=== PATIENT | female | born 1990 | race Caucasian/White ===

== ENCOUNTER 2019-09-18 22:34 | Inpatient (IN) | payer BC ==
[2019-09-19] MEDS ORDERED: Lidocaine 1% 50 ML MDV INJECT PRN (00:44)
[2019-09-19] MEDS ORDERED: Carboprost Tromethamine 250 MCG/1 ML Amp IM PRN (00:44)
[2019-09-19] MEDS ORDERED: Misoprostol 200 MCG Tab PO PRN (00:44)
[2019-09-19] MEDS ORDERED: Sodium Chloride 0.9% 2.5 ML Syringe FLUSH PRN (00:44)
[2019-09-19] MEDS ORDERED: Methylergonovine 0.2 MG/1 ML Amp IM PRN ×2 (00:44→07:36)
[2019-09-19] MEDS ORDERED: Sodium Chloride 0.9% 10 ML Syringe FLUSH PRN (00:44)
[2019-09-19] MEDS ORDERED: Water For Irrigation,Sterile 1,000 ML Container IRR PRN (00:44)
[2019-09-19] MEDS ORDERED: Tranexamic Acid 1,000 MG in Sodium Chloride 0.9% 100 ML IV PRN ×2 (00:44→07:36)
[2019-09-19] MEDS ORDERED: Butorphanol 1 MG/ML SDV IVPUSH PRN (00:44)
[2019-09-19] MEDS ORDERED: Sodium Chloride 0.9% 10 ML SDV IV PRN (00:44)
[2019-09-19] MEDS ORDERED: Nalbuphine 10 MG/1 ML Vial IVPUSH PRN (00:44)
[2019-09-19] MEDS ORDERED: Oxytocin/0.9 % Sodium Chloride 30 UNIT/500 ML BAG IV SCH (00:45)
[2019-09-19] MEDS: Lactated Ringers 1,000 ML IV SCH ×3 (00:59→02:15)
[2019-09-19] MEDS ORDERED: Lidocaine 2% 5 ML SDV ONE (01:55)
[2019-09-19] MEDS ORDERED: Ropivacaine 0.2% 2 MG/ML 100 ML Infusion Bottle ONE (02:00)
[2019-09-19] MEDS ORDERED: fentaNYL 100 MCG/2 ML SDV ONE (02:09)
--- NOTE | 2019-09-19 02:20 | PCM.PREANE ---
Preanesthetic Assessment - Anesthesia/Transfusion/Family Hx Anesthesia History: Prior Anesthesia Without Reaction Family History of Anesthesia Reaction: No Transfusion History: No Prior Transfusion(s) - Physical Assessment NPO Status Date: 09/18/19 NPO Status Time: 18:00 Height: 1.7 m Weight: 90.718 kg ASA Class: 1 - Lab Values: Laboratory Last Values WBC 11.59 K/uL (4.0-11.0) H 09/19/19 00:53 RBC 3.76 M/uL (4.30-5.90) L 09/19/19 00:53 Hgb 10.7 g/dL (12.0-16.0) L 09/19/19 00:53 Hct 32.4 % (36.0-46.0) L 09/19/19 00:53 MCV 86.2 fL (80.0-98.0) 09/19/19 00:53 MCH 28.5 pg (27.0-32.0) 09/19/19 00:53 MCHC 33.0 g/dL (31.0-37.0) 09/19/19 00:53 RDW Std Deviation 41.0 fl (28.0-62.0) 05 00:53 RDW Coeff of Jose 14 % (11.0-15.0) 09/19/19 00:53 Plt Count 376 K/uL (150-400) 09/19/19 00:53 MPV 8.90 fL (7.40-12.00) 05 00:53 Blood Type O POSITIVE 09/19/19 00:53 Antibody Screen NEGATIVE 09/19/19 00:53 - Allergies Allergies/Adverse Reactions: Allergies Allergy/AdvReac Type Severity Reaction Status Date / Time No Known Allergies Allergy Verified 09/18/19 23:04 - Acknowledgements Anesthesia Type Planned: Epidural Pt an Appropriate Candidate for the Planned Anesthesia: Yes Alternatives and Risks of Anesthesia Discussed w Pt/Guardian: Yes Pt/Guardian Understands and Agrees with Anesthesia Plan: Yes PreAnesthesia Questionnaire HEENT History: Reports: Other (See Below) Other HEENT History: wisdom teeth 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: , Other (See Below) Other OB/BYN History: Clomid Psychiatric History: Reports: Anxiety - Infectious Disease History Infectious Disease History: Reports: Chicken Pox - Past Surgical History GI Surgical History: Reports: Hernia Repair/Other - SUBSTANCE USE Smoking Status *Q: Never Smoker Second Hand Smoke Exposure: No - HOME MEDS Home Medications: Home Meds Calcium Carbonate [Tums] 200 mg PO PRN 03/11/18 [History] No.116/Iron/Folic/Dha [Expecta Combo Pack] 03/11/18 [History] Nortriptyline HCl [Pamelor] 10 mg PO TID 09/18/19 [History] - CURRENT (IN HOUSE) MEDS Current Meds: Current Medications Butorphanol Tartrate (Stadol) 1 mg IVPUSH Q1H PRN PRN Reason: Pain Carboprost Tromethamine (Hemabate Ds) 250 mcg IM ASDIRECTED PRN PRN Reason: Post Hemorrhage Tranexamic Acid 1,000 mg/ (Sodium Chloride) 110 mls @ 660 mls/hr IV ONETIME PRN PRN Reason: Bleeding Lactated Ringer's (Ringers, Lactated) 1,000 mls @ 150 mls/hr IV ASDIRECTED [place] Last Admin: 09/19/19 02:15 Dose: 500 mls/hr Oxytocin/Sodium Chloride (Oxytocin 30 Unit/500 Ml-Ns) 30 unit in 500 mls @ 500 mls/hr IV TITRATE [facility] Lidocaine HCl (Xylocaine 1%) 50 ml INJECT ONETIME PRN PRN Reason: Laceration repair Methylergonovine Maleate (Methergine) 0.2 mg IM ASDIRECTED PRN PRN Reason: Post Hemorrhage Misoprostol (Cytotec) 200 mcg PO ONETIME PRN PRN Reason: Post Hemorrhage Nalbuphine HCl (Nubain) 10 mg IVPUSH Q1H PRN PRN Reason: Pain (severe 7-10) Sodium Chloride (Saline Flush) 10 ml FLUSH ASDIRECTED PRN PRN Reason: Keep Vein Open Sodium Chloride (Saline Flush) 2.5 ml FLUSH ASDIRECTED PRN PRN Reason: Keep Vein Open Sodium Chloride (Normal Saline) 10 ml IV ASDIRECTED PRN PRN Reason: IV Use Sterile Water (Sterile Water For Irrigation) 1,000 ml IRR ASDIRECTED PRN PRN Reason: delivery Discontinued Medications Fentanyl (Sublimaze) Confirm Administered Dose 100 mcg .ROUTE .STK-MED ONE Stop: 09/19/19 02:10 Lidocaine (Xylocaine-Mpf 2%) Confirm Administered Dose 15 ml .ROUTE .STK-MED ONE Stop: 09/19/19 01:56
--- NOTE | 2019-09-19 02:24 | PCM.PRNOTE ---
- Free Text/Narrative Note: Anes NOte Patietn requests epidural for L&D. Sitting position, level L3-L4 midline approach. Sterile technique. Chloraprep scrub to lumbar area. Sterile fenestrated drape applied. Epidural space easily achieved single attempt with ease using KB technique. KB at 3 cm. Cath threaded 5 cm with ease. Cath secured at 9 cm with sterile clear adhesive dressing. 0205 test 3 cc 1.5% lido with epi negative. 0208 Load 10 cc 2% lidocaine MPF in slow divided doses. 0214 Pump started wtih 100 cc 0.2% ropivicaine with 1 mcg cc fentanyl added. Rate is 8 cc hr with 6 cc q 20 mi prn bolus. Jonathan well. Time with patient [id number] Aj Bautista [employer]
[2019-09-19] MEDS ORDERED: Bisacodyl 10 MG Supp RECTAL PRN (07:36)
[2019-09-19] MEDS ORDERED: Witch Hazel Medicated Pads 40/Jar TOP PRN (07:36)
[2019-09-19] MEDS ORDERED: Ibuprofen 400 MG Tab PO PRN (07:36)
[2019-09-19] MEDS ORDERED: Benzocaine/Menthol 20%-0.5% Spray 78 GM Cannister TOP PRN (07:36)
[2019-09-19] MEDS ORDERED: Lanolin 100% Cream 7 GM Tube TOP PRN (07:36)
[2019-09-19] MEDS ORDERED: Acetaminophen 500 MG Tab PO PRN ×2 (07:36)
[2019-09-19] MEDS ORDERED: Nortriptyline 10 MG Cap PO SCH ×2 (07:39→21:00)
--- NOTE | 2019-09-19 07:42 | PCM.DEL ---
L & D Note - General Info Date of Service: 09/19/19 Mother's Due Date: 09/22/19 - Delivery Note Labor: Spontaneous Delivery Outcome: Livebirth Presentation: Right Occiput Anterior (WILMER) (rotated manually for ROP) Nuchal Cord: Present, Reduced Prep: Other Anesthesia Type: Epidural Laceration: 1st Degree Suture type: Vicryl Placenta: Intact, Spontaneous Cord: 3 Vessels Estimated Blood Loss: 200 Resuscitation Needed: No Murphy: Suctioned Score 1 min: 8 Score 5 min: 9 Delivery Comments (Free Text/Narrative):: Liveborn male 3520 grams - General Info Date of Service: 09/19/19 - Patient Data Weight - Most Recent: 90.718 kg I&O - Last 24 Hours: Intake & Output 09/18/19 09/19/19 09/19/19 22:59 06:59 14:59 Intake Total 2000 500 Balance 2000 500 Lab Results Last 24 Hours: Laboratory Results - last 24 hr 09/19/19 09/19/19 Range/Units 00:53 00:53 WBC 11.59 H (4.0-11.0) K/uL RBC 3.76 L (4.30-5.90) M/uL Hgb 10.7 L (12.0-16.0) g/dL Hct 32.4 L (36.0-46.0) % MCV 86.2 (80.0-98.0) fL MCH 28.5 (27.0-32.0) pg MCHC 33.0 (31.0-37.0) g/dL RDW Std Deviation 41.0 (28.0-62.0) fl RDW Coeff of Jose 14 (11.0-15.0) % Plt Count 376 (150-400) K/uL MPV 8.90 (7.40-12.00) fL Blood Type O POSITIVE Antibody Screen NEGATIVE Med Orders - Current: Current Medications Acetaminophen (Tylenol Extra Strength) 500 mg PO Q4H PRN PRN Reason: Pain Acetaminophen (Tylenol Extra Strength) 1,000 mg PO Q4H PRN PRN Reason: Pain Benzocaine/Menthol (Dermoplast Pain Relief 20%-0.5% [place]) 78 gm TOP ASDIRECTED PRN PRN Reason: Perineal Comfort Measure Bisacodyl (Dulcolax) 10 mg RECTAL ONETIME PRN PRN Reason: Constipation Docusate Sodium (Colace) 100 mg PO BID PRN PRN Reason: Constipation Emollient Ointment (Lansinoh Hpa) 0 gm TOP ASDIRECTED PRN PRN Reason: Sore Nipples Tranexamic Acid 1,000 mg/ (Sodium Chloride) 110 mls @ 660 mls/hr IV ONETIME PRN PRN Reason: Bleeding Ibuprofen (Motrin) 400 mg PO Q4H PRN PRN Reason: Pain Ibuprofen (Motrin) 800 mg PO Q6H PRN PRN Reason: Pain Methylergonovine Maleate (Methergine) 0.2 mg IM ONETIME PRN PRN Reason: Excessive Vaginal Bleeding Nortriptyline HCl (Nortriptyline) 30 mg PO BEDTIME [facility] Js Lamar (Tucks) 1 pad TOP ASDIRECTED PRN PRN Reason: comfort care Discontinued Medications Butorphanol Tartrate (Stadol) 1 mg IVPUSH Q1H PRN PRN Reason: Pain Carboprost Tromethamine (Hemabate Ds) 250 mcg IM ASDIRECTED PRN PRN Reason: Post Hemorrhage Fentanyl (Sublimaze) Confirm Administered Dose 100 mcg .ROUTE .STK-MED ONE Stop: 09/19/19 02:10 Tranexamic Acid 1,000 mg/ (Sodium Chloride) 110 mls @ 660 mls/hr IV ONETIME PRN PRN Reason: Bleeding Lactated Ringer's (Ringers, Lactated) 1,000 mls @ 150 mls/hr IV ASDIRECTED [facility] Last Admin: 09/19/19 02:15 Dose: 500 mls/hr Oxytocin/Sodium Chloride (Oxytocin 30 Unit/500 Ml-Ns) 30 unit in 500 mls @ 500 mls/hr IV TITRATE [facility] Last Admin: 09/19/19 07:14 Dose: 500 mls/hr Lidocaine (Xylocaine-Mpf 2%) Confirm Administered Dose 15 ml .ROUTE .STK-MED ONE Stop: 09/19/19 01:56 Lidocaine HCl (Xylocaine 1%) 50 ml INJECT ONETIME PRN PRN Reason: Laceration repair Methylergonovine Maleate (Methergine) 0.2 mg IM ASDIRECTED PRN PRN Reason: Post Hemorrhage Misoprostol (Cytotec) 200 mcg PO ONETIME PRN PRN Reason: Post Hemorrhage Nalbuphine HCl (Nubain) 10 mg IVPUSH Q1H PRN PRN Reason: Pain (severe 7-10) Sodium Chloride (Saline Flush) 10 ml FLUSH ASDIRECTED PRN PRN Reason: Keep Vein Open Sodium Chloride (Saline Flush) 2.5 ml FLUSH ASDIRECTED PRN PRN Reason: Keep Vein Open Sodium Chloride (Normal Saline) 10 ml IV ASDIRECTED PRN PRN Reason: IV Use Sterile Water (Sterile Water For Irrigation) 1,000 ml IRR ASDIRECTED PRN PRN Reason: delivery Last Admin: 09/19/19 07:08 Dose: 1,000 ml - Problem List & Annotations (1) Vaginal delivery SNOMED Code(s): 208466855 Code(s): O80 - ENCOUNTER FOR FULL-TERM UNCOMPLICATED DELIVERY Status: Acute Current Visit: No - Problem List Review Problem List Initiated/Reviewed/Updated: Yes - My Orders Last 24 Hours: My Active Orders 09/18/19 23:07 Non Stress Test [RC] PER UNIT ROUTINE Up ad Jud [RC] ASDIRECTED Vaginal Exam [RC] Click to Edit Vital Signs [RC] PER UNIT ROUTINE 09/19/19 00:44 Heart Tones [RC] CONTINUOUS Non Stress Test [RC] PER UNIT ROUTINE May Shower [RC] ASDIRECTED Notify Provider [RC] PRN Up ad Jud [RC] ASDIRECTED Vaginal Exam [RC] PRN Vital Signs [RC] PER UNIT ROUTINE 09/19/19 00:53 RPR (SYPHILIS SERO) W/ RFLX [REF] Routine 09/19/19 07:20 BLOOD GAS ARTERIAL UMBILICAL [BG] Urgent BLOOD GAS VENOUS UMBILICAL [BG] Urgent 09/19/19 07:36 Patient Status [ADT] Routine May Shower [RC] ASDIRECTED Up ad Jud [RC] ASDIRECTED Vital Signs [RC] PER UNIT ROUTINE Acetaminophen [Tylenol Extra Strength] 1,000 mg PO Q4H PRN Acetaminophen [Tylenol Extra Strength] 500 mg PO Q4H PRN Benzocaine/Menthol [Dermoplast Pain Relief 20%-0.5% [place]] 78 gm TOP ASDIRECTED PRN Docusate Sodium [Colace] 100 mg PO BID PRN Ibuprofen [Motrin] 400 mg PO Q4H PRN Ibuprofen [Motrin] 800 mg PO Q6H PRN Lanolin [Lansinoh HPA] See Dose Instructions TOP ASDIRECTED PRN Methylergonovine [Methergine] 0.2 mg IM ONETIME PRN Tranexamic Acid [Cyklokapron] 1,000 mg Sodium Chloride 0.9% [Normal Saline] 100 ml IV ONETIME bisacodyL [Dulcolax] 10 mg RECTAL ONETIME PRN witch Jeferson [Tucks] 1 pad TOP ASDIRECTED PRN Assess Lochia [WOMSER] Per Unit Routine Assess Uterine Involution [WOMSER] Per Unit Routine Peripheral IV Discontinue [OM.PC] Routine Resuscitation Status Routine 09/19/19 07:37 Perineal Care [OM.PC] Per Unit Routine 09/19/19 07:39 Nortriptyline 30 mg PO BEDTIME 09/20/19 05:11 HEMOGLOBIN/HEMATOCRIT,HH [HEME] Timed
[2019-09-19] MEDS ORDERED: Nortriptyline 10 MG Cap PO ONE (07:55)
[2019-09-19] MEDS: Ibuprofen 800 MG Tab PO PRN ×2 (11:07→21:24)
[2019-09-19] MEDS: Docusate Sodium 100 MG Cap PO PRN ×2 (11:07→23:25)
--- NOTE | 2019-09-19 16:22 | OR ---
SURGEON: Cindy Kelly M.D. DATE OF PROCEDURE: 09/19/2019 PREOPERATIVE DIAGNOSES: 39-4/7 week intrauterine , active spontaneous labor. POSTOPERATIVE DIAGNOSES: 39-4/7 week intrauterine , active spontaneous labor. PROCEDURE: Term spontaneous vaginal delivery, repair of first-degree laceration. PRIMARY SURGEON: Cindy Kelly M.D. ANESTHESIA: Epidural. ESTIMATED BLOOD LOSS: Less than 300 mL. FINDINGS: Liveborn male. score of 8 and 9. Weight of 3520 g. Placenta spontaneous, Cisneros intact, with 3 vessels. Small first-degree perineal laceration repaired. COMPLICATIONS: None known. DISPOSITION: Mother and baby in LDR in good condition. BRIEF HISTORY: This is a 29-year-old female, G2, P1. She presents at 39-4/7 weeks' gestation in active spontaneous labor. She had category 1 heart tones. She was admitted for labor management. She was known to be group B strep negative. When she was 5 cm dilated, she received an epidural for pain control. She continued to progress spontaneously, although she felt slower than she would anticipate when she was 9 cm dilated. Artificial rupture of membranes was performed and clear fluid was noted. Shortly thereafter, she began to feel pressure. Anterior lip was reducible. She began to push. She was noted to be in the right occiput posterior position and with pushing, was rotated manually to the right occiput anterior position. DESCRIPTION OF PROCEDURE: With the patient in dorsal lithotomy position, the patient pushed over 4 contractions to a 5+ station, at which time the head was delivered spontaneously and atraumatically over the perineum with support with subsequent delivery of the infant's shoulders and body without any difficulty. The was bulb suctioned by nose and mouth and after the cord had ceased to pulsate, it was doubly clamped and cut. The infant was handed to the mother in the presence of the nurse attending delivery. The was a liveborn male, score of 8 and 9, weighing 3520 g. Cord blood was collected for cord ABGs as well as routine cord blood sampling. Pitocin was initiated after delivery of the to assist with delivery of the placenta which was delivered spontaneously, Cisneros intact with 3 vessels. Upon inspection of the pelvis and perineum, there were no periurethral, vaginal sidewall, cervical, or rectal lacerations. There was a small first-degree abrasion at 7 o'clock of the perineum and a single [id number] suture was placed for hemostasis. Final sponge, needle, and instrument counts were correct. There were no complications. Mother and baby remained in LDR in good condition. ANNALISA RIVAS /[id number]
--- NOTE | 2019-09-19 23:43 | PCM48HPAN ---
Post Anesthesia Note - EVALUATION WITHIN 48HRS OF ANESTHETIC Vital Signs in Normal Range: Yes Patient Participated in Evaluation: Yes Respiratory Function Stable: Yes Airway Patent: Yes Cardiovascular Function Stable: Yes Hydration Status Stable: Yes Pain Control Satisfactory: Yes Nausea and Vomiting Control Satisfactory: Yes Mental Status Recovered: Yes Vital Signs: Last Vital Signs Temp 36.7 C 09/19/19 20:09 Pulse 83 09/19/19 20:09 Resp 17 09/19/19 20:09 BP 127/78 09/19/19 20:09 Pulse Ox 97 09/19/19 20:09
--- NOTE | 2019-09-20 08:20 | PCM.PNPP ---
- General Info Date of Service: 09/20/19 Functional Status: Reports: Pain Controlled, Tolerating Diet, Ambulating, Urinating - Review of Systems General: Reports: No Symptoms HEENT: Reports: No Symptoms Pulmonary: Reports: No Symptoms Cardiovascular: Reports: No Symptoms Gastrointestinal: Reports: No Symptoms Genitourinary: Reports: No Symptoms Musculoskeletal: Reports: No Symptoms Skin: Reports: No Symptoms Neurological: Reports: No Symptoms Psychiatric: Reports: No Symptoms - Patient Data Vital Signs - Most Recent: Last Vital Signs Temp 37.6 C 09/20/19 04:45 Pulse 94 09/20/19 04:45 Resp 17 09/20/19 04:45 BP 108/57 L 09/20/19 04:45 Pulse Ox 97 09/20/19 04:45 Weight - Most Recent: 90.718 kg Lab Results - Last 24 Hours: Laboratory Results - last 24 hr 09/20/19 Range/Units 06:20 Hgb 9.0 L (12.0-16.0) g/dL Hct 28.4 L (36.0-46.0) % Med Orders - Current: Current Medications Acetaminophen (Tylenol Extra Strength) 500 mg PO Q4H PRN PRN Reason: Pain Acetaminophen (Tylenol Extra Strength) 1,000 mg PO Q4H PRN PRN Reason: Pain Benzocaine/Menthol (Dermoplast Pain Relief 20%-0.5% [place]) 78 gm TOP ASDIRECTED PRN PRN Reason: Perineal Comfort Measure Last Admin: 09/19/19 08:51 Dose: 1 spray Bisacodyl (Dulcolax) 10 mg RECTAL ONETIME PRN PRN Reason: Constipation Docusate Sodium (Colace) 100 mg PO BID PRN PRN Reason: Constipation Last Admin: 09/19/19 23:25 Dose: 100 mg Emollient Ointment (Lansinoh Hpa) 0 gm TOP ASDIRECTED PRN PRN Reason: Sore Nipples Last Admin: 09/19/19 19:53 Dose: 7 gm Tranexamic Acid 1,000 mg/ (Sodium Chloride) 110 mls @ 660 mls/hr IV ONETIME PRN PRN Reason: Bleeding Ibuprofen (Motrin) 400 mg PO Q4H PRN PRN Reason: Pain Ibuprofen (Motrin) 800 mg PO Q6H PRN PRN Reason: Pain Last Admin: 09/19/19 21:24 Dose: 800 mg Methylergonovine Maleate (Methergine) 0.2 mg IM ONETIME PRN PRN Reason: Excessive Vaginal Bleeding Nortriptyline HCl (Nortriptyline) 30 mg PO BEDTIME [facility] Last Admin: 09/19/19 21:23 Dose: 30 mg Witch Brianda (Tucks) 1 pad TOP ASDIRECTED PRN PRN Reason: comfort care Last Admin: 09/19/19 08:51 Dose: 1 pack Discontinued Medications Butorphanol Tartrate (Stadol) 1 mg IVPUSH Q1H PRN PRN Reason: Pain Carboprost Tromethamine (Hemabate Ds) 250 mcg IM ASDIRECTED PRN PRN Reason: Post Hemorrhage Fentanyl (Sublimaze) Confirm Administered Dose 100 mcg .ROUTE .STK-MED ONE Stop: 09/19/19 02:10 Last Admin: 09/19/19 11:21 Dose: Not Given Tranexamic Acid 1,000 mg/ (Sodium Chloride) 110 mls @ 660 mls/hr IV ONETIME PRN PRN Reason: Bleeding Lactated Ringer's (Ringers, Lactated) 1,000 mls @ 150 mls/hr IV ASDIRECTED [facility] Last Admin: 09/19/19 02:15 Dose: 500 mls/hr Oxytocin/Sodium Chloride (Oxytocin 30 Unit/500 Ml-Ns) 30 unit in 500 mls @ 500 mls/hr IV TITRATE [facility] Last Admin: 09/19/19 07:14 Dose: 500 mls/hr Lidocaine (Xylocaine-Mpf 2%) Confirm Administered Dose 15 ml .ROUTE .STK-MED ONE Stop: 09/19/19 01:56 Lidocaine HCl (Xylocaine 1%) 50 ml INJECT ONETIME PRN PRN Reason: Laceration repair Methylergonovine Maleate (Methergine) 0.2 mg IM ASDIRECTED PRN PRN Reason: Post Hemorrhage Misoprostol (Cytotec) 200 mcg PO ONETIME PRN PRN Reason: Post Hemorrhage Nalbuphine HCl (Nubain) 10 mg IVPUSH Q1H PRN PRN Reason: Pain (severe 7-10) Nortriptyline HCl (Nortriptyline) 30 mg PO ONETIME ONE Stop: 09/19/19 07:56 Last Admin: 09/19/19 10:04 Dose: Not Given Ropivacaine (Naropin 0.2%) 200 mg .ROUTE .[employer]ellyCloud-Green Momit ONE Stop: 09/19/19 02:01 Sodium Chloride (Saline Flush) 10 ml FLUSH ASDIRECTED PRN PRN Reason: Keep Vein Open Sodium Chloride (Saline Flush) 2.5 ml FLUSH ASDIRECTED PRN PRN Reason: Keep Vein Open Sodium Chloride (Normal Saline) 10 ml IV ASDIRECTED PRN PRN Reason: IV Use Sterile Water (Sterile Water For Irrigation) 1,000 ml IRR ASDIRECTED PRN PRN Reason: delivery Last Admin: 09/19/19 07:08 Dose: 1,000 ml - Infant Interaction Disposition, : [place] in Room with Family Infant Interaction: Holding Infant Feeding: Breastfed Infant; Nursed Well Support Person: - Recovery Exam Fundal Tone: Firm Fundal Level: 3 Fingerbreadths Below Umbilicus Fundal Placement: Midline Lochia Amount: Small Lochia Color: Rubra/Red Other Perinuem Description: First degree tear, repaired Bladder Status: Voiding Urinary Elimination: Voided - Exam General: Alert, Oriented Neck: Supple Lungs: Normal Respiratory Effort GI/Abdominal Exam: Soft, Non-Tender Extremities: Non-Tender Skin: Warm, Dry, Intact Neurological: No New Focal Deficit Psy/Mental Status: Alert, Normal Affect, Normal Mood - Problem List & Annotations (1) Vaginal delivery SNOMED Code(s): 018481990 Code(s): O80 - ENCOUNTER FOR FULL-TERM UNCOMPLICATED DELIVERY Status: Acute Current Visit: No - Problem List Review Problem List Initiated/Reviewed/Updated: Yes - My Orders Last 24 Hours: My Active Orders 09/20/19 08:19 Ready for Discharge [RC] PER UNIT ROUTINE - Assessment Assessment:: 29yo P2 s/p , PPD#1 - Plan Plan:: Patient desires discharge home today; reviewed discharge instructions.
== END 2019-09-20 11:35 | disposition home or self-care (01) | DRG 560 ==
LOC: MW.OBCHECK 22:34 → MW.OB 22:34 → MW.OBCHECK 09-19 00:44 → MW.OB 09-19 00:44 → OBSVTOIN 09-19 07:14 → MW.OB 09-19 09:38
PROVIDERS: ADMIT Obstetrics & Gynecology; ATTEND Obstetrics & Gynecology
PROC: 10E0XZZ Delivery of Products of Conception, External Approach (ICD-10-PCS; principal; 2019-09-19)
PROC: 0HQ9XZZ Repair Perineum Skin, External Approach (ICD-10-PCS; 2019-09-19)
PROC: 10907ZC Drainage of Amniotic Fluid, Therapeutic from Products of Conception, Via Natural or Artificial Opening (ICD-10-PCS; 2019-09-19)
PROC: 3E0R3BZ Introduction of Anesthetic Agent into Spinal Canal, Percutaneous Approach (ICD-10-PCS; 2019-09-19)
PROC: 00HU33Z Insertion of Infusion Device into Spinal Canal, Percutaneous Approach (ICD-10-PCS; 2019-09-19)
DX: O69.81X0 Labor and delivery complicated by cord around neck, without compression, not applicable or unspecified (principal); Z3A.39 39 weeks gestation of pregnancy; Z37.0 Single live birth; O70.0 First degree perineal laceration during delivery
CPT/HCPCS: 01967; 36415; 51702; 59025; 59409; 82803; 85014; 85018; 85027; 86592; 86593; 86850; 86900; 86901; A9270-GY; J2001; J2590; J2795; J3010; J7120